=== PATIENT | male | born 2000 | race Hispanic/Latino ===

== ENCOUNTER 2020-06-23 15:46 | Emergency (ER) | payer SELFPAY ==
[2020-06-23] MEDS ORDERED: IBUPROFEN 600 MG TABLET ONE (16:37)
[2020-06-23] MEDS ORDERED: TETANUS/DIPHTHERIA TOXOID [ADULT] 0.5 ML VIAL IM ONE (16:38)
== END 2020-06-23 17:26 | disposition home or self-care (01) ==
LOC: EEVIPCON 15:46 → EDH 15:46
DX: S00.33XA Contusion of nose, initial encounter (principal); X58.XXXA Exposure to other specified factors, initial encounter; Y93.89 Activity, other specified; Y92.89 Other specified places as the place of occurrence of the external cause; Y99.8 Other external cause status
CPT/HCPCS: 70160; 90471; 90714